=== PATIENT | male | born 1955 | race African-American/Black ===

== ENCOUNTER 2016-10-27 14:43 | Emergency (ER) | payer OTHER ==
[~2016-10-27 14:43] MED LIST: ASAB PO; EXFORGE1 TAB PO; GLUCOPHAGE1000 MG PO; GLUCOTRO10 PO; HUMALOG SC; HYDROCHLOROT12.5 MG PO; LANTUSCART SC; LEVEMIR SC; LOPID6 PO; MSCONT15 PO; NEUR400 PO; NEUR600 PO; NORCO1 TA1 PO; PCET PO; PERCOCET1 TA2 PO; PRAVAC PO; V5 PO
== END 2016-10-27 15:00 | disposition home or self-care (01) ==
LOC: ER 14:43
PROC: 2W3DX1Z Immobilization of Left Lower Arm using Splint (ICD-10-PCS; principal; 2016-10-27)
DX: S52.92XA Unspecified fracture of left forearm, initial encounter for closed fracture (principal); S52.612A Displaced fracture of left ulna styloid process, initial encounter for closed fracture; I10 Essential (primary) hypertension; E11.9 Type 2 diabetes mellitus without complications; Z79.82 Long term (current) use of aspirin; Z79.4 Long term (current) use of insulin; Z79.899 Other long term (current) drug therapy; W22.8XXA Striking against or struck by other objects, initial encounter
CPT/HCPCS: 73090-LT; 73130-LT; 96372; 99284